=== PATIENT | female | born 1955 | race Caucasian/White ===

== ENCOUNTER → 2016-10-08 | Outpatient (CLI) | payer OTHER ==
[~2016-10-08] MED LIST: DILT-113 PO; FLVHFA110 INH; INDA1TAB3 PO; LEVO175T PO; OMEP40CA41 PO; OXYC-57 PO; OXYC1TAB3 PO; SYN25 PO
[2016-10-08 09:33] LABS: BASO % 0.6 %; BASO ABS # 0.04 K/uL (0-0.2); COMPLETE YES; EOS % 1.7 %; HEMATOCRIT 41.4 % (37-47); IG% 0.1 %; LYMPH % 24.3 %; LYMPH ABS # 1.68 K/uL (1.2-3.4); MEAN CELL VOLUME 89.8 fL (80-100); MEAN CORPUSCULAR HGB CONC 34.5 g/dl (32-36); MEAN PLATELET VOLUME 11.6 fL (7.4-10.4); MONO % 8.1 %; NEUT % 65.2 %; PLATELET COUNT 193 K/uL (130-400); RED BLOOD COUNT 4.61 M/uL (4.2-5.4); WHITE BLOOD COUNT 6.92 K/uL (4.8-10.8)
[2016-10-08 09:45] LABS: BLOOD UREA NITROGEN 13 mg/dl (7-18); BUN/CREATININE RATIO 16.8 (10-20); CARBON DIOXIDE 25 mmol/L (21-32); CHLORIDE 104 mmol/L (98-107); CREATININE 0.75 mg/dl (0.60-1.20); GLUCOSE 95 mg/dl (70-99); POTASSIUM 3.8 mmol/L (3.5-5.1); SODIUM 139 mmol/L (136-145)
[2016-10-08 09:46] LABS: CALCIUM 9.2 mg/dl (8.5-10.1); CHOLESTEROL 232 mg/dl (0-200)
[2016-10-08 09:56] LABS: CHOLESTEROL/HDL RATIO 3.5; HDL CHOLESTEROL 66 mg/dl; LDL CHOLESTEROL CALCULATED 144 mg/dl; THYROID STIMULATING HORMONE 0.742 uIu/ml (0.300-4.500); TRIGLYCERIDES 109 mg/dl (0-150); VERY LOW DENSITY LIPOPROT CALC 22 mg/dl
[2016-10-08 10:48] LABS: ESTIMATED AVERAGE GLUCOSE 103 mg/dl; HA1C FLAG Normal (Normal)
== END | disposition home or self-care (01) ==
LOC: C.LAB1850 08:21
PROVIDERS: ATTEND Internal Medicine
DX: E03.9 Hypothyroidism, unspecified (principal); I10 Essential (primary) hypertension

== ENCOUNTER 2017-05-09 19:26 | Emergency (ER) | payer OTHER ==
[~2017-05-09] VITALS: Ht 165.1 cm; Wt 79.0 kg
[~2017-05-09 19:26] MED LIST changes: -DILT-113 PO; -FLVHFA110 INH; -INDA1TAB3 PO; -LEVO175T PO; -OMEP40CA41 PO; -OXYC-57 PO; -OXYC1TAB3 PO
[2017-05-09 19:29] VITALS: TEMP 36.6; Ht 165.1 cm; Wt 79.0 kg
[2017-05-09] MEDS ORDERED: LEVO175T PO (19:44)
[2017-05-09] MEDS ORDERED: INDA1TAB3 PO (19:44)
[2017-05-09] MEDS ORDERED: DILT-113 PO (19:44)
[2017-05-09] MEDS ORDERED: OMEP40CA41 PO (19:49)
[2017-05-09] MEDS ORDERED: FLVHFA110 INH (19:49)
--- NOTE | 2017-05-09 20:05 | DIAGNOSTIC IMAGING REPORT ---
RIGHT ANKLE MIN 3 VIEWS ROUTINE HISTORY: 61 years-old Female right ankle pain, fell down a hill Right acute right ankle pain status post injury. COMPARISON: None available. TECHNIQUE: 3 views of the right ankle FINDINGS: There is an acute obliquely oriented mildly comminuted fracture of the distal fibular metadiaphysis with distal extent of the fracture extending 2 cm proximal to the talar dome. There is 4 mm medial and 3 mm posterior displacement. There is widening of the distal tibiofibular syndesmosis, 9 mm compatible with syndesmotic ligamentous injury. Additionally, there is acute complete transverse fracture of the medial malleolus with more proximal tibia displaced medially 5 mm. On the oblique projection, there is increased widening of the medial clear space, 5 mm. Moderate soft tissue swelling is noted about the ankle with joint effusion. Mild spurring of the plantar calcaneus. IMPRESSION: 1. Acute mildly displaced mildly comminuted fracture of the distal fibular metadiaphysis with associated widening of the distal tibial fibular syndesmosis compatible with syndesmotic ligamentous disruption. 2. Acute mildly displaced medial malleolar fracture with asymmetric widening of the medial clear space. The above report was generated using voice recognition software. It may contain grammatical, syntax or spelling errors. Electronically signed by: Harjeet Dunlap M.D. 05/09/2017 8:04 PM Dictated Date/Time: 05/09/2017 7:59 PM
[2017-05-09] MEDS ORDERED: OXYC1TAB3 PO (20:42)
--- NOTE | 2017-05-09 20:44 | EMERGENCY ROOM VISIT NOTE ---
ED Visit Note First contact with patient: 19:37 CHIEF COMPLAINT: "I think I broke my foot" HISTORY OF PRESENT ILLNESS: This 61-year-old female patient presents to the emergency department, [facility], after sustaining an injury to the right ankle and foot with a twisting, inversion motion when she slid down a grassy hill. The patient states she was wearing flip flops outside in the rain, and was walking down a help. The patient states she slipped and fell, noted that her right ankle rolled as this was occurring. The patient complains of very minimal pain along the outside and inside of the ankle, but states pain is extremely mild. The patient denies pain of the foot. The patient rates the pain as numbness and 0/10. The patient is not able to bear weight on the foot. Pain is worse with movement, weight bearing, and the dependent position. No knee pain, the patient is able to move their toes. No numbness or weakness of the foot, no laceration. The patient has not had a previous fracture to this ankle. The patient immediately took 400 mg ibuprofen and put ice on the ankle for the pain. The patient denies any other injury. REVIEW OF SYSTEMS: A 6 system review of systems was completed with positives and pertinent negatives listed in the HPI. ALLERGIES: None MEDICATIONS: Synthroid, 2 hypertension medications, an acid reflux medication PMH: Hypertension, hypothyroidism, GERD SOCIAL HISTORY: Patient was locally with family. She denies drug, tobacco use. The patient admits to drinking approximately 3 glasses of wine per day. PHYSICAL EXAM: Vital Signs: Reviewed Nurse's notes, vital signs stable. GENERAL : This is a 61-year-old white female, no acute distress, but appears in pain, well-developed, well-nourished. MENTAL STATUS: Alert, oriented to person place and time, and cooperative. MUSCULOSKELETAL: The right ankle is swollen and tender over the medial and lateral malleolus, but the skin is intact and there is no ligamentous instability. There is no fifth metatarsal tenderness. There is no tenderness over the rest of the foot. There is no calf or tibia/fibular tenderness. There is no visual deformity. The foot and toes are warm and well- perfused. Dorsalis pedis pulse 2+. Sensation to pain and light touch is intact. Capillary refill less than 2 seconds. RADIOLOGY: X-Ray Right Ankle: FINDINGS: There is an acute obliquely oriented mildly comminuted fracture of the distal fibular metadiaphysis with distal extent of the fracture extending 2 cm proximal to the talar dome. There is 4 mm medial and 3 mm posterior displacement. There is widening of the distal tibiofibular syndesmosis, 9 mm compatible with syndesmotic ligamentous injury. Additionally, there is acute complete transverse fracture of the medial malleolus with more proximal tibia displaced medially 5 mm. On the oblique projection, there is increased widening of the medial clear space, 5 mm. Moderate soft tissue swelling is noted about the ankle with joint effusion. Mild spurring of the plantar calcaneus. IMPRESSION: 1. Acute mildly displaced mildly comminuted fracture of the distal fibular metadiaphysis with associated widening of the distal tibial fibular syndesmosis compatible with syndesmotic ligamentous disruption. 2. Acute mildly displaced medial malleolar fracture with asymmetric widening of the medial clear space. EMERGENCY DEPARTMENT COURSE: I examined the patient. The patient denies any pain medication, as she is not in any pain while laying flat. X-rays of the right ankle were reviewed by myself and read by radiology and reveal bimalleolar fracture with widening of the distal tibial fibular syndesmosis. I did consult with Dr. Martinez regarding the patient's unstable fracture. He did review the images. Dr. Martinez states the patient will need surgery, but requested that she follow-up in the office outpatient on Thursday. An orthoglass posterior leg splint with a stirrup was applied to the ankle under my direction and the position was satisfactory. Neurovascular status was rechecked and intact. The patient was given a dose of OxyIR 5mg here in the ED prior to discharge. She was sent home with a home pack of medications. The patient was instructed on the use of crutches. The patient was discharged home in good condition. DIFFERENTIAL DIAGNOSIS: fracture, contusion, sprain, strain, 5th metatarsal fracture, ligamentous injury, and others DIAGNOSIS: Bimalleolar fracture DISCHARGE INSTRUCTIONS: Oxycodone (OxyIR) 5mg: Take 1-2 pills every four hours as needed for breakthrough pain. Avoid alcohol, operating machinery or dangerous equipment, working on ladders or roofs, DRIVING, or situations where being under the influence may be dangerous. It is recommended to use an jmfn-udo-kckldgi stool softener such as Colace, 100mg twice daily while taking this medication to avoid constipation. Ibuprofen(Motrin, Advil) may be used for fever or pain. Use 600mg every six hours as needed. Take with food. Avoid using more than 2400mg in a 24 hour period. Do not use 2400mg per day for more than three consecutive days without physician direction. Prolonged inappropriate use can lead to stomach upset or ulcers. (AND/OR) Acetaminophen(Tylenol) may be used for fever or pain. Use 1000mg every six hours as needed. Avoid using more than 3000mg in a 24 hour period. *You may alternate these medications every 3-4 hours for increased pain control. Ice compresses for 20 minutes at a time four times daily for 2-3 days. Use the crutches as instructed to completely avoid weight bearing. Rest and elevate your injury. Do not get the splint wet. If your splint feels excessively tight, you have worsening pain, develop numbness or tingling, or your digits appear blue, loosen the chloé wrap. Then reapply the chloé wrap gently without removing the splint. If your symptoms are not quickly relieved return to the ER for re- evaluation. Return to the ER immediately for any numbness, tingling, severe pain, extreme swelling in the extremity or as needed. Call [facility], [phone], on Thursday, per Dr. Martinez's request, to arrange follow up for your injury. Follow-up with your primary care physician in 2 to 3 days for a recheck of your current condition. Current/Historical Medications Scheduled Diltiazem Hcl Ext Rel (Tiazac), 180 MG PO DAILY Fluticasone Propionate (Flovent Hfa), 2 PUFFS INH BID Indapamide (Lozol), 1.25 MG PO DAILY Levothyroxine Sodium (Synthroid), 175 MCG PO DAILY Omeprazole (Prilosec), 40 MG PO DAILY Scheduled PRN Oxycodone Ir (Roxicodone Ir), 1-2 TAB PO Q4H PRN for Pain Allergies Coded Allergies: Cat Dander (Unverified Allergy, Mild, 12/05/09) Dog Dander (Unverified Allergy, Mild, 12/05/09) Penicillins (Verified Allergy, Unknown, ?, 12/05/09) No Known Allergies (Verified , 06/20/07) Vital Signs Date Time Temp Pulse Resp B/P (MAP) Pulse Ox O2 Delivery O2 Flow Rate FiO2 05/09/17 21:20 76 127/96 95 05/09/17 19:29 36.6 77 16 145/76 98 Room Air Medications Administered Medications (Trade) Dose Ordered Sig/Ramy Route Start Time Stop Time Status Last Admin Dose Admin Oxycodone HCl (Roxicodone Immediate Rel Tab) 5 mg NOW STAT PO 05/09/17 20:46 05/09/17 20:48 DC 05/09/17 20:54 5 MG Departure Information Impression Primary Impression: Bimalleolar fracture of right ankle Dispostion Home / Self-Care Condition GOOD Prescriptions Oxycodone Ir (Roxicodone Ir) 5 Mg Tab 1-2 TAB PO Q4H Y for Pain, #30 TAB For Initial Treatment Prov: Anu Arenas, PASarah 05/09/17 Referrals Zaki Bunch M.D. (PCP) Jefry Martinez, DO Patient Instructions ED [facility]x [facility] Additional Instructions ORTHOPEDIC INSTRUCTIONS: Oxycodone (OxyIR) 5mg: Take 1-2 pills every four hours as needed for breakthrough pain. Avoid alcohol, operating machinery or dangerous equipment, working on ladders or roofs, DRIVING, or situations where being under the influence may be dangerous. It is recommended to use an evrw-fls-zbbbjay stool softener such as Colace, 100mg twice daily while taking this medication to avoid constipation. Ibuprofen(Motrin, Advil) may be used for fever or pain. Use 600mg every six hours as needed. Take with food. Avoid using more than 2400mg in a 24 hour period. Do not use 2400mg per day for more than three consecutive days without physician direction. Prolonged inappropriate use can lead to stomach upset or ulcers. (AND/OR) Acetaminophen(Tylenol) may be used for fever or pain. Use 1000mg every six hours as needed. Avoid using more than 3000mg in a 24 hour period. *You may alternate these medications every 3-4 hours for increased pain control. Ice compresses for 20 minutes at a time four times daily for 2-3 days. Use the crutches as instructed to completely avoid weight bearing. Rest and elevate your injury. Do not get the splint wet. If your splint feels excessively tight, you have worsening pain, develop numbness or tingling, or your digits appear blue, loosen the chloé wrap. Then reapply the chloé wrap gently without removing the splint. If your symptoms are not quickly relieved return to the ER for re- evaluation. Return to the ER immediately for any numbness, tingling, severe pain, extreme swelling in the extremity or as needed. Call [facility], [phone], on Thursday, per Dr. Martinez's request, to arrange follow up for your injury. Follow-up with your primary care physician in 2 to 3 days for a recheck of your current condition. Problem Qualifiers Primary Impression: Bimalleolar fracture of right ankle Encounter type: initial encounter Fracture type: closed Qualified Codes: S82.841A - Displaced bimalleolar fracture of right lower leg, initial encounter for closed fracture
[2017-05-09] MEDS ORDERED: OXYCODONE IR HOME PACK PO ONE (20:45)
[2017-05-09] MEDS ORDERED: OXYCODONE HCL IR 5 MG TAB (IMMEDIATE RELEASE) PO STA (20:46)
[2017-05-09 21:20] VITALS: BP 127/96; PULSE 76; O2SAT 95
== END 2017-05-09 21:20 | disposition home or self-care (01) ==
LOC: C.EDB 19:29 → C.EDD 21:20
DX: S82.841A Displaced bimalleolar fracture of right lower leg, initial encounter for closed fracture (principal); X50.0XXA Overexertion from strenuous movement or load, initial encounter; W18.40XA Slipping, tripping and stumbling without falling, unspecified, initial encounter; Z79.899 Other long term (current) drug therapy; I10 Essential (primary) hypertension; E03.9 Hypothyroidism, unspecified; K21.9 Gastro-esophageal reflux disease without esophagitis

== ENCOUNTER → 2017-05-12 | Outpatient (CLI) | payer OTHER ==
[~2017-05-12] MED LIST changes: +DILT-113 PO; +FLVHFA110 INH; +INDA1TAB3 PO; +LEVO175T PO; +OMEP40CA41 PO; +OXYC-57 PO; +OXYC1TAB3 PO; -SYN25 PO
[2017-05-12 13:23] LABS: BASO % 0.5 %; BASO ABS # 0.04 K/uL (0-0.2); COMPLETE YES; IG% 0.1 %; LYMPH ABS # 1.48 K/uL (1.2-3.4); MEAN CELL VOLUME 91.3 fL (80-100); MEAN CORPUSCULAR HEMOGLOBIN 30.1 pg (25-34); MEAN PLATELET VOLUME 11.9 fL (7.4-10.4); MONO % 12.7 %; NEUT % 66.7 %; PLATELET COUNT 218 K/uL (130-400); RED BLOOD COUNT 4.71 M/uL (4.2-5.4); WHITE BLOOD COUNT 7.79 K/uL (4.8-10.8)
[2017-05-12 13:51] LABS: BLOOD UREA NITROGEN 18 mg/dl (7-18); BUN/CREATININE RATIO 22.3 (10-20); CALCIUM 9.7 mg/dl (8.5-10.1); CARBON DIOXIDE 24 mmol/L (21-32); CHLORIDE 104 mmol/L (98-107); CREATININE 0.81 mg/dl (0.60-1.20); GLUCOSE 98 mg/dl (70-99); POTASSIUM 3.3 mmol/L (3.5-5.1); SODIUM 139 mmol/L (136-145)
== END | disposition home or self-care (01) ==
LOC: C.LAB 12:23
PROVIDERS: ATTEND Orthopaedic Surgery
DX: S82.841A Displaced bimalleolar fracture of right lower leg, initial encounter for closed fracture (principal); X58.XXXA Exposure to other specified factors, initial encounter

== ENCOUNTER 2017-05-14 12:53 | Day surgery (SDC) | payer OTHER ==
[2017-05-13 17:54] VITALS: BMI 29.0
--- NOTE | 2017-05-13 23:03 | HISTORY & PHYSICAL EXAMINATION ---
DATE OF ADMISSION: 05/14/2017 CHIEF COMPLAINT: Right bimalleolar ankle fracture. HISTORY OF PRESENT ILLNESS: Dayna is a pleasant 61-year-old female, who slipped in her house and had a slight inversion injury to her right ankle. She had significant pain and discomfort and deformity of her ankle. She went to the Emergency Room where x-rays showed a displaced bimalleolar ankle fracture. She was placed in a splint and sent to my office. After discussions, we elected to proceed with an open reduction internal fixation. She understood the risks, benefits, alternatives to the procedure and elected to proceed. PAST MEDICAL HISTORY: Significant for hypertension and hypothyroidism. PAST SURGICAL HISTORY: None. ALLERGIES: None. MEDICATIONS: Include Synthroid 75 mcg daily, indapamide 1.2 mg daily, omeprazole 40 mg daily and diltiazem. FAMILY HISTORY: Noncontributory. SOCIAL HISTORY: She is . Has 1-2 drinks a day. Denies any tobacco or IV drug use. She is very active. REVIEW OF SYSTEMS: She complains of left ankle pain. All other pertinent review of systems are negative. PHYSICAL EXAMINATION: GENERAL: She is awake, alert and orient x3. She is in no apparent distress. She is very pleasant. HEENT: Pupils are equal, round and reactive to light. Extraocular movements are intact. Oral mucosa is pink and moist. HEART: Regular rate per radial pulse. LUNGS: Vandana symmetrically bilaterally with no audible breath sounds. ABDOMEN: Soft, nontender, nondistended. MUSCULOSKELETAL: On physical examination of the right ankle, she does have some swelling near the toes. She has a splint in place. Sensation to her toes is intact. There is no gross deformity of her ankle. X-rays I reviewed in the hospital do show a moderately displaced bimalleolar ankle fracture. It is a short oblique fracture of the distal fibula and a transverse fracture of the medial malleolus. IMPRESSION: Bimalleolar right ankle fracture. PLAN: We will proceed with open reduction internal fixation of the right ankle. Postoperatively, she will be placed in a splint and discharged to home with oral pain medications.
[~2017-05-14] VITALS: Ht 165.1 cm; Wt 79.4 kg
[~2017-05-14 12:53] MED LIST changes: +CEFAZOLIN 2000 MG/60 ML D5W 60 ML IV SCH; +LACTATED RINGER'S 1000ML 1,000 ML IV SCH; -OXYC-57 PO
[2017-05-14 13:44] VITALS: BP 156/103; PULSE 76; TEMP 36.6; O2SAT 94; Ht 165.1 cm; Wt 79.4 kg
[2017-05-14] MEDS ORDERED: DEXAMETHASONE SOD INJ 4 MG/ML VIAL ONE ×2 (13:59→17:44)
[2017-05-14] MEDS ORDERED: BUPIVACAINE/EPINEPHRINE 0.25% 1:200,000 30 ML VIAL ONE ×2 (13:59→16:27)
[2017-05-14] MEDS: LACTATED RINGER'S 1000ML IV SCH (14:16)
[2017-05-14 14:19] LABS: PROTHROMBIN TIME (PATIENT) 10.5 SECONDS (9.0-12.0)
[2017-05-14] MEDS ORDERED: CEFAZOLIN IV 2,000 MG/60 ML D5W IV ONE (14:25)
[2017-05-14] MEDS ORDERED: BUPIVACAINE/EPINEPHRINE 0.5% MPF 1:200,000 10 ML VIAL ONE (14:54)
[2017-05-14] MEDS ORDERED: BACITRACIN 50000 UNIT VIAL ONE (14:54)
[2017-05-14] MEDS ORDERED: FENTANYL CITRATE INJ 50 MCG/1 ML 2 ML VIAL ONE (15:17)
[2017-05-14] MEDS ORDERED: MIDAZOLAM HCL 1 MG/ML 2ML VIAL ONE (15:17)
--- NOTE | 2017-05-14 16:13 | History & Physical Bridge Note ---
H&P Re-Evaluation Bridge Note: I have examined the patient, reviewed the History & Physical and in the interval since the performance of the History & Physical I have noted the following changes of clinical significance: No changes noted
[2017-05-14] MEDS ORDERED: ONDANSETRON INJ 2 MG/ML 2 ML VIAL ONE (17:44)
[2017-05-14] MEDS ORDERED: LIDOCAINE HCL 2% 2 ML VIAL (20MG/ML) ONE (17:44)
[2017-05-14] MEDS ORDERED: EpHEDrine SULFATE 50MG/5ML SYR ONE (17:44)
[2017-05-14] MEDS ORDERED: PROPOFOL IV EMULSION 10 MG/ML 20 ML VIAL IV ONE (17:44)
--- NOTE | 2017-05-14 17:51 | DIAGNOSTIC IMAGING REPORT ---
RIGHT ANKLE MIN 3 VIEWS ROUTINE CLINICAL HISTORY: Right bimalleolar ankle fracture ORIF. COMPARISON STUDY: Right ankle radiographs May 09, 2017. Fluoroscopy time: 15 seconds. FINDINGS: 2 fluoroscopic images demonstrate placement of a distal right fibular plate and screws. There are 2 medial malleolar screws. Hardware is intact. Fracture alignment has markedly improved and appears near anatomic. Ankle mortise widening is no longer identified. IMPRESSION: Expected findings following right ankle internal fixation. Electronically signed by: Theodore Richards M.D. 05/14/2017 5:50 PM Dictated Date/Time: 05/14/2017 5:46 PM
[2017-05-14] MEDS ORDERED: OXYC-57 PO (17:54)
[2017-05-14] MEDS ORDERED: SODIUM CHLORIDE 0.9% 1000ML 1,000 ML IV SCH (17:55)
--- NOTE | 2017-05-14 17:55 | Discharge Instructions ---
Discharge Instructions Date of Service May 14, 2017. Admission Reason for Admission: Right Ankle Closed Bimalleolar Fracture Discharge Discharge Diagnosis / Problem: SAME ABOVE Discharge Goals Goal(s): Decrease discomfort, Improve function Activity Recommendations Activity Limitations: as noted below Lifting Limitations: until after follow-up appointment Exercise/Sports Limitations: until after follow-up appointment Weightbearing Status: Right non-weightbearing . Instructions / Follow-Up Instructions / Follow-Up MEDICATIONS: * Resume previous medications unless instructed otherwise by your surgeon. * Always take pain medication on a full stomach or with food to avoid upset stomach. * Do not drink alcohol or drive while taking narcotics. * Ibuprofen or Tylenol may be taken if narcotic not needed. SPECIAL CARE INSTRUCTIONS: __ None _X_ Keep extremity elevated and iced x 48 hours; apply ice 20-30 minutes 8-10 times/day. May remove at night. __ Crutches __ May discard when able __ Brace/Post-op shoe __ 24 hrs/day __ Remove at night _X_ Dressing _X_ Maintain until seen in office, may shower with plastic over site __ Remove dressings in 24-48 hours and then may shower __ Cover incisions with band-aids after showering __ Do not remove steri-strips Call physician if chills or temperature rises above 102 degrees or pain unrelieved by prescribed pain medications. Office [phone] Current Hospital Diet Patient's current hospital diet: Discharge Diet Recommended Diet: Regular Diet Procedures Procedures Performed: Right Bimalleolar Ankle Fracture Open Reduction Internal Fixation Pending Studies Studies pending at discharge: no Work Instructions Return To Work: 1 week Medical Emergencies . Who to Call and When: Medical Emergencies: If at any time you feel your situation is an emergency, please call 911 immediately. . Non-Emergent Contact Non-Emergency issues call your: Primary Care Provider Call Non-Emergent contact if: you have a fever, temperature is above 101.5 . "Provider Documentation" section prepared by Merlin Ordonez. . VTE Core Measure Inpt VTE Proph given/why not?: Treatment not indicated
[2017-05-14] MEDS ORDERED: ONDANSETRON INJ 2 MG/ML 2 ML VIAL IV PRN ×2 (18:00→18:45)
[2017-05-14] MEDS ORDERED: OXYCODONE/ACETAMINOPHEN 5-325 TAB PO PRN ×2 (18:00)
--- NOTE | 2017-05-14 18:18 | [facility] Post Operative Brief Note ---
Immediate Operative Summary Operative Date May 14, 2017. Pre-Operative Diagnosis Bimalleolar right ankle fracture Post-Operative Diagnosis same as pre-operative Procedure(s) Performed Right Bimalleolar Ankle Fracture Open Reduction Internal Fixation Surgeon Dr. Jefry Martinez Color Depositing Machine Tender Surgeon(s) JODI Bruce Estimated Blood Loss 5ml Findings as above Specimens none per surgeon Complication(s) None Disposition Recovery Room / PACU
--- NOTE | 2017-05-14 18:38 | Anesthesiology Progress Note ---
Anesthesia Post Op Note Date & Time May 14, 2017 at 18:38 Vital Signs Pain Intensity: 0 Vital Signs Past 12 Hours Date Time Temp Pulse Resp B/P (MAP) Pulse Ox O2 Delivery O2 Flow Rate FiO2 05/14/17 18:21 139/79 05/14/17 18:20 77 18 93 05/14/17 18:20 69 18 05/14/17 18:18 36.4 69 20 139/79 (99) 94 Room Air 05/14/17 18:17 132/84 05/14/17 18:15 63 12 05/14/17 18:15 62 12 96 05/14/17 18:11 153/79 05/14/17 18:10 73 15 100 05/14/17 18:10 72 15 05/14/17 18:09 65 15 05/14/17 18:09 65 15 98 05/14/17 18:06 130/77 05/14/17 18:04 58 21 05/14/17 18:04 60 21 100 05/14/17 18:02 119/72 05/14/17 17:59 65 17 100 05/14/17 17:59 62 17 05/14/17 17:56 141/67 05/14/17 17:55 137/73 05/14/17 17:54 36.4 59 18 137/73 100 Mask 10 05/14/17 17:54 65 23 100 05/14/17 17:54 65 23 05/14/17 13:44 36.6 76 20 156/103 (120) 94 Room Air Notes Mental Status: alert / awake / arousable, participated in evaluation Pt Amnestic to Procedure: Yes Nausea / Vomiting: adequately controlled Pain: adequately controlled Airway Patency, RR, SpO2: stable & adequate BP & HR: stable & adequate Hydration State: stable & adequate Anesthetic Complications: no major complications apparent Block working well in pacu
[2017-05-14 18:45] VITALS: BP 150/72; PULSE 61; TEMP 36.3; O2SAT 93
[2017-05-14] MEDS ORDERED: FENTANYL CITRATE INJ 50 MCG/1 ML 2 ML VIAL IV PRN (18:45)
[2017-05-14] MEDS ORDERED: EpHEDrine SULFATE INJ 50 MG/ML AMP IV PRN (18:45)
[2017-05-14] MEDS ORDERED: ATROPINE SULFATE 0.1 MG/ML 5ML SYR IV PRN (18:45)
[2017-05-14 19:11] VITALS: BP 159/84; PULSE 68; TEMP 36.8; O2SAT 92
--- NOTE | 2017-05-14 19:44 | OPERATIVE REPORT ---
DATE OF OPERATION: 05/14/2017 PREOPERATIVE DIAGNOSIS: Bimalleolar right ankle fracture. POSTOPERATIVE DIAGNOSIS: Same. PROCEDURE: Open reduction internal fixation of right bimalleolar ankle fracture. SURGEON: Dr. Jefry Martinez. TINNING MACHINE SET UP OPERATOR: Vish Ordonez PA-C, whose assistance was necessary for positioning the leg and helping with instrumentation. ANESTHESIA: General. COMPLICATIONS: None. CONDITION: Stable to PACU. INDICATIONS: Dayna is a pleasant 61-year-old female who rolled her ankle over the weekend, sustained a right bimalleolar ankle fracture. She came to my office and she elected to proceed with open reduction internal fixation. DESCRIPTION OF THE PROCEDURE: On 05/14/2017, she arrived at [facility] for the above procedure. She was seen in the preoperative holding area and the operative extremity was identified and signed. She was given a preoperative antibiotic and taken back to the operating room, laid on the table in supine position and put under general anesthesia. The right ankle was then prepped and draped in sterile fashion. Time-out was done and the patient and operative extremity was properly identified. A lateral incision was made directly over the distal fibula. Dissection was taken down through the fascia with care not to disrupt the intermediate branch of the peroneal nerve. The fracture was then exposed. A lag screw was placed across the fracture site to help hold it in place. A 7-hole Synthes 1/3 tubular locking plate was then placed. Locking screws were placed both proximally and distally. The lag screw was not holding well, so it was removed. Fluoroscopic images showed anatomic reduction of the fracture. Attention was then turned to the medial aspect. A curvilinear incision was made over the medial malleolus. Dissection was taken down to the fracture and the fracture was reduced with a clamp. Two guide pins were placed in the medial malleolus perpendicular to the fracture. Appropriate placement was checked under fluoroscopy. Two 4.0 mm cannulated screws were placed. This gave a good compression at the fracture site. Final fluoroscopic images were taken and demonstrated anatomic alignment of the ankle. The wounds were then irrigated, surrounding soft tissues was injected with 30 mL of 0.25% Marcaine with epinephrine. The tourniquet was deflated and hemostasis was controlled. The skin was then closed with 2-0 Vicryl and amparo. She was placed in a trauma splint, extubated, transferred to a [facility] and taken to the postanesthesia care unit in stable condition. She tolerated the procedure well. IMPLANTS USED: I used a Synthes 1/3 tubular locking plate laterally and two 4.0 mm cannulated screws medially. I attest to the content of the Intraoperative Record and any orders documented therein. Any exception s are noted below.
== END 2017-05-14 19:26 | disposition home or self-care (01) ==
LOC: C.ACU 12:53
PROVIDERS: ATTEND Orthopaedic Surgery
DX: S82.841A Displaced bimalleolar fracture of right lower leg, initial encounter for closed fracture (principal); X50.0XXA Overexertion from strenuous movement or load, initial encounter; Y92.89 Other specified places as the place of occurrence of the external cause; I10 Essential (primary) hypertension; E03.9 Hypothyroidism, unspecified; Z79.899 Other long term (current) drug therapy

== ENCOUNTER → 2017-08-26 | Outpatient (CLI) | payer OTHER ==
[~2017-08-26] MED LIST changes: -CEFAZOLIN 2000 MG/60 ML D5W 60 ML IV SCH; -FLVHFA110 INH; -LACTATED RINGER'S 1000ML 1,000 ML IV SCH; +OXYC-57 PO
== END | disposition home or self-care (01) ==
LOC: C.LABSPEC 17:12
PROVIDERS: ATTEND Dermatology
DX: R21 Rash and other nonspecific skin eruption (principal)